=== PATIENT | female | born 1955 | race American Indian/Alaskan Native ===

== ENCOUNTER 2017-02-22 15:17 | Outpatient (CLI) | payer OTHER | END 2017-02-22 15:18 | disposition home or self-care (01) | LOC: LABHHL 15:17 | PROVIDERS: ATTEND Surgery | DX: N63 Unspecified lump in breast (principal) | CPT/HCPCS: 88305; 88361 ==

== ENCOUNTER 2017-03-01 08:42 | Outpatient (CLI) | payer OTHER ==
--- NOTE | 2017-03-01 14:01 | Ultrasound Report ---
ULTRASOUND GUIDED NEEDLE CORE BIOPSY WITH CLIP PLACEMENT OF A LEFT AXILLARY LYMPH NODE : 03/01/17 CLINICAL: Left breast cancer and a suspicious left axillary lymph node. COMPARISON :02/27/17 FINDINGS: The procedure was explained to the patient and informed consent was obtained. Ultrasound demonstrated the a 1 cm lymph node with no central fat and irregular contour. The skin in the axilla was prepped with Betadine and anesthetized with 1% lidocaine. Ultrasound guided needle core biopsy of the lymph node was performed through a small dermatotomy using 2% lidocaine with epinephrine for deep anesthesia and a 18-gauge Achieve biopsy device. 3 samples were obtained and placed in formalin. It was difficult to distinguish the margins of the lymph node from injected lidocaine and 2 clips were deployed. Hemostasis was obtained with minimal pressure and a sterile dressing was applied. The patient tolerated the procedure well and there were no apparent complications. A single view mammogram shows 2 clips in the left axilla in the vicinity of the lymph node. However, injected lidocaine obscures the margins of the lymph node and I'm not certain either of the clips is within the lymph node. She was discharged in good condition and was given wound care and followup instructions. IMPRESSION: Uncomplicated ultrasound-guided needle core biopsy of a left axillary lymph node.
--- NOTE | 2017-03-01 14:04 | Mammography Report ---
LEFT DIGITAL DIAGNOSTIC MAMMOGRAM : 03/01/17 08:42:00 CLINICAL: Status post biopsy of a left axillary lymph node. COMPARISON:02/27/17 FINDINGS: 2 clips are identified in the left axilla.There is considerable increase density from injected lidocaine. The more inferior clip appears to be at the margin of the lymph node but not within the lymph node. IMPRESSION: Deployment of 2 clips in the left axilla.However, neither of the clips appears to be within the lymph node. ACR BI-RADS MAMMOGRAPHIC CODES: 0 = Needs additional imaging evaluation; 1 = Negative; 2 = Benign; 3 = Probably benign; 4 = Suspicious; 5 = Malignant; 6 = Known biopsy-proven malignancy COMMENT: 1. Dense breast tissue, i.e., adenosis, fibrocystic changes, etc., may obscure an underlying neoplasm. 2. Approximately 10% of cancers are not detected with mammography. 3. A negative mammography report should not delay biopsy if a clinically suspicious mass is present. COMMENT: Patient follow-up letters are generated by our [employer] application.
--- NOTE | 2017-03-02 14:14 | Magnetic Resonance Report ---
BILATERAL BREAST MRI WITHOUT AND WITH CONTRAST: 03/01/17 08:42:00 CLINICAL: Newly diagnosed left breast cancer. Status post left needle biopsy on 02/21/17 with pathologic diagnosis of invasive ductal carcinoma, Amado grade 2/3. ER/PA positive and HER-2 positive. COMPARISON:October 2016 mammograms from [facility] and a left diagnostic mammogram 02/27/17. TECHNIQUE: Axial 1.0-mm T1 without, axial high resolution 2.0-mm T2 and axial 1.0-mm dynamic Vibrant high-resolution postcontrast T1 fat saturation sequences on a 1.5 Ethel magnet. The examination was performed with an 8 channel dedicated [place] breast coil. Post processing with CAD and subtraction was performed on an [employer] workstation. 20 cc of Multihance was injected without incident for the contrast portion of the exam. Consent was obtained prior to the administration of the contrast. FINDINGS: Right: Minimal background parenchymal enhancement. No mass or suspicious enhancement of the right breast. A benign intraparenchymal lymph node in the upper inner quadrant 6.7 cm from the nipple measures 3.4 x 3.3 x 2.6 mm. No suspicious right axillary or right internal mammary lymph nodes. Left: Marked background enhancement. The recently biopsied cancer is an irregular enhancing retroareolar mass at 12 o'clock 5.6 cm from the nipple measuring 4.8 x 5.4 x 5.6 cm. It demonstrates heterogeneous enhancement with 225% peak enhancement and 13% type III washout. Several additional highly suspicious masses in the left breast. The nipple is retracted and there is abnormal enhancement at the nipple. An irregular enhancing mass in the upper-inner quadrant 3.3 cm from the nipple measures 2.8 x 2.5 x 1.5 cm. It demonstrates heterogeneous enhancement with 175% peak enhancement and 21% type III washout. An irregular enhancing mass in the upper outer quadrant 3.9 cm from the nipple measures 2.6 x 1.8 x 1.8 cm. It demonstrates heterogeneous enhancement with 180% peak enhancement and 16% type III washout. Several additional highly suspicious smaller masses in the left breast. A single suspicious left level I axillary lymph node measures 1.3 x 0.9 cm but is suspicious with an irregular cortical margin. No suspicious left internal mammary lymph nodes. IMPRESSION: 1. Multicentric left breast cancer with a 5.6 cm dominant retroareolar mass and numerous additional highly suspicious masses. 2. A single suspicious left level I axillary lymph node. 3. Negative right breast. RIGHT BI-RADS 1 -- Negative LEFT BI-RADS 6 -- Known Cancer
== END 2017-03-01 08:43 | disposition home or self-care (01) ==
LOC: SPVIMAG 08:42
PROVIDERS: ATTEND Surgery
DX: C50.412 Malignant neoplasm of upper-outer quadrant of left female breast (principal)
CPT/HCPCS: 0159T; 38505; 76942; 88305; A4648; A9577; C8908; G0206; 77059

== ENCOUNTER 2017-03-23 10:05 | Outpatient (CLI) | payer OTHER ==
--- NOTE | 2017-03-23 13:45 | PET Report ---
PET/CT:03/23/17 10:05:00 CLINICAL: Breast cancer initial staging. Newly diagnosed multicentric left breast cancer. RADIOPHARMACEUTICAL: 15.1mCi F18-FDG. COMPARISON: MRI Breast Bilateral 03/01/17 TECHNIQUE- Following intravenous injection of F-18 FDG and an approximately 60 minute uptake period, CT and PET images from the mid skull to the upper thighs were acquired with the patient in the fasted state. No contrast was administered. The CT protocol used for this PET CT study is designed for attenuation correction and anatomic localization of PET abnormalities. This director television CT is not desired to produce and cannot replace, cncim-wh-nbw-art diagnostic CT scans with specific imaging protocols for different body parts and indications. Plasma glucose at the time of this test: 108g/dl. The standardized uptake values (SUV) are normalized to patient body weight and indicate the highest activity concentration (SUV max) in a given disease site. FINDINGS: Brain--Physiologic FDG uptake in the visualized regions of the brain. Neck--Physiologic FDG uptake . Chest--Physiologic FDG uptake in mediastinal blood pool and myocardium. Lungs--No abnormal uptake. No pulmonary nodule or mass. Pleura/pericardium--No abnormal uptake. Thoracic nodes--No abnormal uptake. 2 biopsy clips are identified in the left axilla adjacent to the biopsy proven 1 cm metastatic lymph node. Neither clip is within the lymph node. Minimal FDG uptake SUV 1.8. Hepatobiliary--No abnormal uptake. Liver background SUV mean, as a reference for comparing FDG studies, is 4.2 . Several benign hepatic cysts and no liver mass. The largest cyst is in the lateral segment of the left lobe and measures 3.3 x 2.8 cm. Spleen--No abnormal uptake. Pancreas--No abnormal uptake. Adrenal Glands--No abnormal uptake. Kidneys/Ureters/Bladder--No abnormal uptake. Abdominopelvic Nodes--No abnormal uptake. Bowel/Peritoneum/Mesentery--No abnormal uptake. Pelvic organs--No abnormal uptake. Bones/Soft Tissues--No suspicious uptake. Relatively uniform FDG uptake in the bone marrow consistent with benign marrow stimulation. No suspicious bone lesions. Other findings: Left breast masses with FDG uptake. The dominant mass demonstrates the greatest uptake with SUV 5.9. Skin thickening of the left breast. IMPRESSION- Multicentric left breast cancer with one biopsy proven left axillary metastatic lymph node. No suspicion of additional metastasis.
== END 2017-03-23 10:06 | disposition home or self-care (01) ==
LOC: PET 10:05
PROVIDERS: ATTEND Internal Medicine Hematology & Oncology
DX: C50.112 Malignant neoplasm of central portion of left female breast (principal); N63 Unspecified lump in breast; K76.89 Other specified diseases of liver
CPT/HCPCS: 78815; 82962; A9552

== ENCOUNTER 2017-07-04 13:03 | Outpatient (CLI) | payer OTHER ==
--- NOTE | 2017-07-04 14:06 | Mammography Report ---
Left mammogram: Compared to 03/01/17 and 02/27/17. CAD study utilized. Findings: Dense left breast parenchyma. Biopsy clips identified without interval change. Calcifications without significant interval change. No distinct mass is seen. Impression: Probably benign findings. 6 month followup may be recommended. BI-RADS CATEGORY: 3 = Probably benign ACR BI-RADS MAMMOGRAPHIC CODES: 0 = Needs additional imaging evaluation; 1 = Negative; 2 = Benign; 3 = Probably benign; 4 = Suspicious; 5 = Malignant; 6 = Known biopsy-proven malignancy COMMENT: 1. Dense breast tissue, i.e., adenosis, fibrocystic changes, etc., may obscure an underlying neoplasm. 2. Approximately 10% of cancers are not detected with mammography. 3. A negative mammography report should not delay biopsy if a clinically suspicious mass is present.
== END 2017-07-04 13:04 | disposition home or self-care (01) ==
LOC: SPVWC 13:03
PROVIDERS: ATTEND Surgery
DX: C50.412 Malignant neoplasm of upper-outer quadrant of left female breast (principal)
CPT/HCPCS: G0206-LT

== ENCOUNTER 2017-08-29 18:00 | Inpatient (IN) | payer OTHER ==
[~2017-08-29 18:00] MED LIST: LACTATED RINGERS 1,000 ML IV SCH; MORPHINE IV PRN; TYLENOL PO PRN; VANCOMYCIN PHARMACY TO DOSE IV SCH
[2017-08-29] MEDS ORDERED: VANCOMYCIN 1,750 MG in NACL 0.9% 500 ML 500 ML IV ONE (19:30)
[2017-08-29] MEDS: PERCOCET 5/325 PO PRN (21:16)
[2017-08-29 22:48] LABS: Anion Gap 17 mmol/L; BUN/Creatinine Ratio 12; Blood Urea Nitrogen 7 mg/dL (7-17); Calcium 8.7 mg/dL (8.4-10.2); Carbon Dioxide 24 mmol/L (22-30); Chloride 96.1 mmol/L (98-107); Glucose 109 mg/dL (65-100); Potassium 3.8 mmol/L (3.6-5.0); Sodium 133 mmol/L (137-145)
[2017-08-29] MEDS: ZOSYN/NS 2.25 GM/50ML 2.25 GM/50 ML BAG IV SCH (23:01)
[2017-08-29] MEDS: HEPARIN SUB-Q SCH (23:02)
[2017-08-30] MEDS: PERCOCET 5/325 PO PRN (03:35)
[2017-08-30] MEDS ORDERED: PEPCID PO NR ×2 (06:00)
[2017-08-30] MEDS ORDERED: NACL 0.9% 1000 ML 1,000 ML IV SCH (06:00)
[2017-08-30] MEDS: ZOSYN/NS 2.25 GM/50ML 2.25 GM/50 ML BAG IV SCH (06:30)
[2017-08-30] MEDS ORDERED: GARAMYCIN ONE (07:20)
[2017-08-30] MEDS ORDERED: BACITRACIN ONE ×2 (07:20→07:37)
[2017-08-30] MEDS ORDERED: ANCEF ONE (07:20)
[2017-08-30] MEDS: HEPARIN SUB-Q SCH ×3 (07:22→19:21)
[2017-08-30] MEDS ORDERED: XYLOCAINE 1% 20 mL ONE (07:23)
[2017-08-30] MEDS ORDERED: MARCAINE 0.5% 0 ML INFILTRATI ONE (07:23)
[2017-08-30] MEDS ORDERED: DIPRIVAN 10 MG/ML IV ONE (07:28)
[2017-08-30] MEDS ORDERED: DILAUDID ONE ×2 (07:29→08:22)
[2017-08-30] MEDS ORDERED: XYLOCAINE MPF 2% ONE (07:30)
--- NOTE | 2017-08-30 07:35 | Anesthesia Day of Surgery ---
Anesthesia Day of Surgery - Day of Surgery Patient Examined: Yes Patient is NPO: Yes
--- NOTE | 2017-08-30 07:35 | Anesthesia Consultation ---
Anesthesia Consult and Med Hx Date of service: 08/30/17 - Airway Anesthetic Teeth Evaluation: Good (implant, permanent) ROM Head & Neck: Adequate Mental/Hyoid Distance: Adequate Mallampati Class: Class II Intubation Access Assessment: Probably Good - Pulmonary Exam CTA: Yes - Cardiac Exam Cardiac Exam: RRR - Pre-Operative Health Status ASA Pre-Surgery Classification: ASA2 Proposed Anesthetic Plan: General - Pulmonary Hx Smoking: Yes (STOPPED X 15 YRS- 1/2 PPD X 2 YRS) Hx Asthma: No COPD: No Hx Pneumonia: No Hx Sleep Apnea: No (KASHIF PRE SCREEN LOW RISK) - Cardiovascular System Hx Hypertension: No - Endocrine Hx End Stage Renal Disease: No - Hematic Hx Anemia: Yes - Other Systems Hx Alcohol Use: Yes (occasional, glass of wine every day) Hx Cancer: Yes (Breast LEFT)
[2017-08-30] MEDS: VANCOMYCIN 1,250 MG in NACL 0.9% 250ML 250 ML IV SCH ×2 (07:49→19:33)
[2017-08-30] MEDS ORDERED: VERSED IV NR (08:00)
[2017-08-30] MEDS ORDERED: ZOFRAN IV PRN (08:00)
[2017-08-30] MEDS ORDERED: ZOFRAN ONE (08:10)
[2017-08-30] MEDS ORDERED: DECADRON ONE (08:10)
[2017-08-30] MEDS ORDERED: ANCEF IR ONE (08:15)
[2017-08-30] MEDS ORDERED: BACITRACIN IR ONE (08:15)
[2017-08-30] MEDS ORDERED: NACL 0.9% IR ONE ×2 (08:15)
[2017-08-30] MEDS ORDERED: GARAMYCIN IV ONE (08:15)
[2017-08-30] MEDS: DILAUDID IV PRN ×2 (09:00→09:10)
--- NOTE | 2017-08-30 09:04 | Post Operative Note ---
Pre-op diagnosis: infection left breast tissue pipe bowl paint trimmer Post-op diagnosis: same Findings: gross purulence of left breast pocket Procedure: removal of left breast tissue pipe bowl paint trimmer Anesthesia: GETA Surgeon: ADARSH CARRILLO Estimated blood loss: none Pathology: none Condition: stable Disposition: PACU
[2017-08-30] MEDS ORDERED: DILAUDID IV PRN (10:00)
--- NOTE | 2017-08-30 10:01 | Operative Report ---
PREOPERATIVE DIAGNOSIS: Infected left breast tissue webbing inspector. POSTOPERATIVE DIAGNOSIS: Infected left breast tissue webbing inspector. PROCEDURE: 1. Incision and drainage complex postoperative wound infection, left breast reconstruction, CPT CODE 56094. 2. Removal of left-sided tissue webbing inspector without insertion of prosthesis CPT CODE 41487. SURGEON: Jose Angel Ortega MD MICROBIOLOGY LAB ASSISTANT: None. ANESTHESIA: General. OPERATIVE INDICATIONS: This is a 61-year-old female, 3 weeks status post bilateral breast reconstruction with tissue expanders and FlexHD biologic mesh. She was doing well, but came in for her 3-week followup yesterday and upon removal of her drains, began having some purulent type drainage coming from the left breast, also was noted to have some cellulitis along the inframammary fold of the skin flaps. She also subjectively reported some low-grade fevers at home and just had not been feeling well with a lot of pain on the left side. It was apparent that there was a likely infection of that webbing inspector and unfortunately it would need to be removed. Arrangements were made to send the patient to the hospital and get her started on IV antibiotics, pain control and hydration and plan to take out the tissue webbing inspector as soon as possible. Risks and benefits were discussed with the patient as well as potential complications and she agreed. OPERATIVE DETAILS: After informed consent was obtained, the patient was brought to the operating room and placed supine on operating table. Preoperative antibiotics and general anesthesia were administered. The patient was prepped and draped in usual sterile fashion. A timeout was called verifying the name of the patient, operation being performed, side and site of the operation. We opened the old incision with a scalpel and removed any residual suture material. Upon opening, there was immediate release of at least 20-30 mL of purulent material around the webbing inspector. This was suctioned out. The webbing inspector was removed, appeared to be intact. The FlexHD had not incorporated likely because it was sitting in a pool of infection that was removed in its entirety as well. We then copiously irrigated the pocket after taking her cultures. Irrigation was performed with 3 liters of first of triple antibiotic irrigation and then diluted Betadine irrigation. Hemostasis was achieved and 19-K[place] Jesse drain was placed into the pocket and brought out and then we closed using 3-0 Monocryl deep dermals and 3-0 Monocryl running subcuticular. Sterile dressing was applied. Sponge and instrument count correct. The patient tolerated the procedure well, was awakened from general anesthesia and transferred to PACU in stable condition. FOLLOWUP PLAN: She will remain in the hospital for the next 24 hours at least until we know her infection is under control and she is afebrile. I will consult Infectious Disease to get the recommendations on antibiotic management and we will need to come up with a postoperative plan as to whether or not we can attempt to place another tissue webbing inspector or if we are going to have to commit her to a possible flap as she is going to need postoperative radiation. COMPLICATIONS: None. ESTIMATED BLOOD LOSS: Minimal. SPECIMENS: None. CULTURES: Anaerobic and aerobic cultures were taken of the left breast pocket and the webbing inspector and biologic mesh were sent for culture as well. FINDINGS: Infected left breast tissue webbing inspector. JOB# [id number] LATANYA/FAYE
[2017-08-30] MEDS: LACTATED RINGERS 1,000 ML IV SCH (10:17)
[2017-08-30] MEDS ORDERED: NACL 0.9% 500 ML 0 ML ONE (10:24)
[2017-08-30] MEDS ORDERED: LACTATED RINGERS 1,000 ML ONE (10:33)
[2017-08-30] MEDS: ROXICODONE PO PRN ×4 (10:50→22:51)
--- NOTE | 2017-08-30 11:01 | Post Anesthesia Evaluation ---
- Post Anesthesia Evaluation Patient Participated: Yes Airway Patent: Yes Stable Respiratory Function: Yes Nausea/Vomiting: No Temp > 96.8F: Yes Pain Manageable: Yes Adequeate Hydration: Yes Anesthesia Complications: No Block Receding Appropriately: Not Applicable Patient on Ventilator: No
[2017-08-30 11:25] LABS: Basophils % (Auto) 0.1 % (0.0-1.8); Eosinophils % (Auto) 0.1 % (0.0-4.3); Hematocrit 28.7 % (30.3-42.9); Hemoglobin 9.7 gm/dl (10.1-14.3); Mean Corpuscular HGB Conc 34 % (30-34); Mean Corpuscular Hemoglobin 32 pg (28-32); Mean Corpuscular Volume 96 fl (79-97); Platelet Count 311 K/mm3 (140-440); Red Blood Count 2.99 M/mm3 (3.65-5.03); Red Cell Distribution Width 15.8 % (13.2-15.2); White Blood Count 6.9 K/mm3 (4.5-11.0)
--- NOTE | 2017-08-30 11:26 | Consultation ---
History of Present Illness - Reason for Consult Consult date: 08/30/17 Breast outside sales inspector infection Requesting physician: ADARSH ORTEGA - History of Present Illness 61 year-old female with history of bilateral breast cancer s/p Right total mastectomy; left modified radical mastectomy on August 09, 2017 with outside sales inspector placement. Patient did well for a couple of week, unforntunately, a week ago she noted increasing pain, erythema and some drainage from surgical wound. She also has been reporting low grade fever for a week. She is currently getting chemo via a port-A-cath. Upon admission, her temperature was 100.1, heart rate 79, blood pressure 128/ 73. Patient was taken to the operating room was found to have purulence at the surgical pocket. M48 M60 Armor Crewman was removed. The cultures were sent. Microbiology: none Current Antimicrobials: Zosyn 08/29 Vancomycin 08/29 Past History Past Medical History: cancer Past Surgical History: Other (mastectomy) Medications and Allergies Allergies Allergy/AdvReac Type Severity Reaction Status Date / Time No Known Allergies Allergy Verified 08/02/17 14:34 Home Medications Medication Instructions Recorded Confirmed Last Taken Type No Known Home Medications [No 08/02/17 08/02/17 Unknown History Reported Home Medications] Active Meds: Active Medications Acetaminophen (Tylenol) 1,000 mg PO Q8H PRN PRN Reason: Pain, Mild (1-3) Heparin Sodium (Porcine) (Heparin) 5,000 unit SUB-Q Q8HR [facility] Last Admin: 08/30/17 10:52 Dose: 5,000 unit Vancomycin HCl 1,250 mg/ (Sodium Chloride) 262.5 mls @ 166.667 mls/hr IV Q12H [facility] Last Admin: 08/30/17 07:49 Dose: 166.667 mls/hr Piperacillin Sod/Tazobactam Sod (Zosyn/Ns 4.5gm/100ml) 4.5 gm in 100 mls @ 200 mls/hr IV Q8HR [facility] Oxycodone HCl (Roxicodone) 5 mg PO Q6H PRN PRN Reason: Pain, Moderate (4-6) Last Admin: 08/30/17 10:50 Dose: 5 mg Vancomycin HCl (Vancomycin Pharmacy To Dose) 1 each IV PKCONSULT KAREN PRN Reason: Protocol Review of Systems All systems: negative (surg wound erythema, tenderness and drainage) Physical Examination - Physical Exam Narrative exam: General appearance: Alert in NAD, conversant Eyes: anicteric sclerae, moist conjunctivae; no lid-lag; PERRLA HENT: Atraumatic; oropharynx clear with moist mucous membranes and no mucosal ulcerations/no oral thrush; normal hard and soft palate. Normal external ears. Neck: Trachea midline; supple, no thyromegaly or lymphadenopathy Lungs: CTA, right sided port no erythema CV: RRR, no murmurs Abdomen: Soft, non-tender; no masses or hepatosplenomegaly Extremities: No peripheral edema or extremity lymphadenopathy Skin: right mastectomy scar ok. left mastectomy with surgicla wound covered with dressings and a drain Psych: Appropriate affect, alert and oriented to person, place and time. Neuro: alert and oriented x 3. Moving all extermities Lines: No CVL / PICC - Constitutional Vitals: Vital Signs Temp Pulse Resp BP Pulse Ox 100.0 F H 84 20 113/65 97 08/30/17 08:50 08/30/17 09:15 08/30/17 09:15 08/30/17 09:15 08/30/17 09:15 Temperature -Last 24 Hours Temperature 100.0 F Temperature 101.2 F Temperature 100.7 F Temperature 99.2 F Temperature 100.1 F Temperature 98.5 F Results - Labs CBC & Chem 7: 08/30/17 10:48 08/29/17 22:08 Labs: Abnormal lab results 08/29/17 Range/Units 22:08 Sodium 133 L (137-145) mmol/L Chloride 96.1 L (98-107) mmol/L Creatinine 0.6 L (0.7-1.2) mg/dL Glucose 109 H (65-100) mg/dL Assessment and Plan Assessment: 1) Sepsis: Present on admission, manifested by low grade fever, tachycardia. Etiology most likely right breast wound infection. 2) Right breast mastectomy wound infection with outside sales inspector -S/P outside sales inspector removal, washout and debridement on 08/30 3) Breast cancer s/p bilateral mastectomy and ongoing chemo Plan: -obtain blood cultures and C-reactive protein (CRP) -follow-up OR deep wound cultures -continue vancomycin and zosyn -upon discharge will consider oral antibiotics depending on isolate Thank you Dr Ortega for your consultation, will follow up with you. Lida Hope MD Infectious Diseases Specialist [facility] ([facility] M [phone] O [phone]
[2017-08-30 11:46] LABS: Erythrocyte Sedimentation Rate 52 mm/Hr (0-20)
[2017-08-30] MEDS: ZOSYN/NS 4.5GM/100ML 4.5 GM/100 ML VIAL IV SCH ×2 (14:57→23:23)
[2017-08-30] MEDS ORDERED: D5LR 1,000 ML IV SCH (19:00)
[2017-08-31] MEDS: HEPARIN SUB-Q SCH ×2 (03:08→11:40)
[2017-08-31] MEDS: LACTATED RINGERS 1,000 ML IV SCH (03:33)
[2017-08-31] MEDS: ROXICODONE PO PRN ×2 (05:01→11:04)
--- NOTE | 2017-08-31 06:46 | Progress Note ---
Assessment and Plan POD 1 s/p removal of infected tissue construction rigger -Will follow up with ID recs. Would like to discharge her today with PO empiric antibiotics and then can perhaps tailor her antibiotics once final results come back in a few days. -will want home health set up to help with drain care and monitoring of the wound. -Percocet for pain Subjective Date of service: 08/31/17 Principal diagnosis: infected left breast construction rigger Interval history: construction rigger removed, ID consult obtained. Reports feeling much better, no more fevers. Tolerating diet. Objective - Exam Narrative Exam: BREASTS: left breast much improved. Erythema resolved. Drainage from drain is serous. No hematoma or seroma. Right breast also looks better. No erythema. No drainage from old drain site. - Constitutional Vitals: Vital Signs - 12hr 08/30/17 08/30/17 08/31/17 20:00 22:51 00:40 Temperature 98.4 F 98.4 F Pulse Rate 75 78 Respiratory 18 18 18 Rate Blood Pressure 110/64 105/66 [Right] 08/31/17 05:01 Temperature Pulse Rate Respiratory 18 Rate Blood Pressure [Right] General appearance: Present: no acute distress - Breasts Breasts: other - Labs CBC & Chem 7: 08/30/17 10:48 08/29/17 22:08 Labs: Abnormal lab results 08/30/17 08/30/17 Range/Units 10:48 10:48 RBC 2.99 L (3.65-5.03) M/mm3 Hgb 9.7 L (10.1-14.3) gm/dl Hct 28.7 L (30.3-42.9) % RDW 15.8 H (13.2-15.2) % Lymph % (Auto) 6.5 L (13.4-35.0) % Lymph # 0.4 L (1.2-5.4) K/mm3 Seg Neutrophils % 87.7 H (40.0-70.0) % C-Reactive Protein 9.80 H (0.00-1.30) mg/dL
[2017-08-31] MEDS: VANCOMYCIN 1,250 MG in NACL 0.9% 250ML 250 ML IV SCH (08:21)
[2017-08-31] MEDS: ZOSYN/NS 4.5GM/100ML 4.5 GM/100 ML VIAL IV SCH (08:22)
--- NOTE | 2017-08-31 09:25 | Hem/Onc Progress Note ---
Assessment and Plan poss d/c today cbc stable will follow as op Subjective Date of service: 08/31/17 Interval history: pt known to me. s/p chemo now with L sided chest wall infection. consulting property manager removed. feels better Objective - Exam Narrative Exam: better - Constitutional Vitals: Last Vital Signs Temp 98.4 F 08/31/17 04:45 Pulse 71 08/31/17 04:45 Resp 18 08/31/17 05:01 BP 109/62 08/31/17 04:45 Pulse Ox 99 08/30/17 16:41 General appearance: no acute distress Performance status: 3-limited selfcare - Neck Neck: supple - Respiratory Respiratory effort: Positive: normal - Breasts Breasts: left: other (L chest wall bandadged) - Labs Lab Results: Laboratory Results - last 24 hr 08/30/17 08/30/17 10:48 10:48 WBC 6.9 RBC 2.99 L Hgb 9.7 L Hct 28.7 L MCV 96 MCH 32 MCHC 34 RDW 15.8 H Plt Count 311 Lymph % (Auto) 6.[address] [place] % (Auto) 5.6 Eos % (Auto) 0.1 Baso % (Auto) 0.1 Lymph # 0.[address] [place] # 0.4 Eos # 0.0 Baso # 0.0 Seg Neutrophils % 87.7 H Seg Neutrophils # 6.0 ESR 52 C-Reactive Protein 9.80 H
--- NOTE | 2017-08-31 10:30 | Discharge Summary ---
Providers - Providers Date of Admission: 08/29/17 18:11 Date of discharge: 08/31/17 Attending physician: ADARSH CARRILLO infectious disease Primary care physician: JOSH COBIAN Hospitalization Reason for admission: infected left tissue auto body worker Condition: Good Procedures: removal of infected tissue auto body worker left and washout Disposition: DC-01 TO HOME OR SELFCARE Core Measure Documentation - Palliative Care Palliative Care/ Comfort Measures: Not Applicable - Core Measures Any of the following diagnoses?: none Exam - Physical Exam Narrative exam: Doing well. Cellulitis and drainage resolved. Drain serous. Afebrile - Constitutional Vitals: Temp Pulse Resp BP Pulse Ox 98.3 F 68 17 112/67 95 08/31/17 08:10 08/31/17 08:10 08/31/17 08:10 08/31/17 08:10 08/31/17 08:10 Plan Activity: other (no heavy lifting) Weight Bearing Status: Weight Bear as Tolerated Diet: regular Wound: keep clean and dry Special Instructions: home health RN Follow up with: JOSH COBIAN MD [Primary Care Provider] - 7 Days ADARSH CARRILLO MD [Staff Physician] - 7 Days
[2017-08-31] MEDS ORDERED: MOTRIN PO PRN (10:52)
[2017-08-31] MEDS ORDERED: COLACE PO SCH (11:00)
--- NOTE | 2017-08-31 11:32 | Progress Note ---
Assessment and Plan Assessment: 1) Sepsis: resolved. Etiology most likely right breast wound infection. 2) Right breast mastectomy wound infection with jig filler -S/P jig filler removal, washout and debridement on 08/30 +OR tissue cx + MRSA 3) Breast cancer s/p bilateral mastectomy and ongoing chemo Plan: -contact isolation -upo discharge will do doxycycline 100 mg po q12h total 10 days from OR date -f/u MRSE MICs to assure it is susceptible to tetracyclines -call ID if MAXINE is resistant -OK to D/C home -educated about doxycycline side effects -surgical f/u in 3-5 days I am signing off Thank you Dr Ortega for your consultation, will follow up with you. Lida Hope MD Infectious Diseases Specialist [facility] ([facility]) M [phone] O [phone] Subjective Date of service: 08/31/17 Principal diagnosis: infected left breast jig filler Interval history: Feels better, more energy, no fever. eating ok. Microbiology: Wound 08/30 left breast surgical wound + MRSA Blood cx 08/30 ngtd Current Antimicrobials: Zosyn 08/29 Vancomycin 08/29 Objective - Exam Narrative Exam: General appearance: Alert in NAD, conversant Eyes: anicteric sclerae, moist conjunctivae; no lid-lag; PERRLA HENT: Atraumatic; oropharynx clear with moist mucous membranes and no mucosal ulcerations/no oral thrush; normal hard and soft palate. Normal external ears. Neck: Trachea midline; supple, no thyromegaly or lymphadenopathy Lungs: CTA, right sided port no erythema CV: RRR, no murmurs Abdomen: Soft, non-tender; no masses or hepatosplenomegaly Extremities: No peripheral edema or extremity lymphadenopathy Skin: right mastectomy scar ok. left mastectomy with surgicla wound covered with dressings and a drain Psych: Appropriate affect, alert and oriented to person, place and time. Neuro: alert and oriented x 3. Moving all extermities Lines: No CVL / PICC - Constitutional Vitals: Vital Signs Temp Pulse Resp BP Pulse Ox 98.3 F 68 17 112/67 95 08/31/17 08:10 08/31/17 08:10 08/31/17 08:10 08/31/17 08:10 08/31/17 08:10 Temperature -Last 24 Hours Temperature 98.3 F Temperature 98.4 F Temperature 98.4 F Temperature 98.4 F Temperature 97.7 F Temperature 98.2 F - Labs CBC & Chem 7: 08/30/17 10:48 08/29/17 22:08 Labs: Abnormal lab results 08/30/17 Range/Units 10:48 C-Reactive Protein 9.80 H (0.00-1.30) mg/dL
[2017-08-31 15:50] VITALS: BP 112/73
== END 2017-08-31 15:45 | disposition home health service (06) | DRG 907 ==
LOC: OR 18:00 → OB 18:11
PROVIDERS: ADMIT Plastic Surgery; ATTEND Plastic Surgery
PROC: 0HPU0NZ Removal of Tissue Expander from Left Breast, Open Approach (ICD-10-PCS; principal; 2017-08-30)
PROC: 0H9U0ZZ Drainage of Left Breast, Open Approach (ICD-10-PCS; 2017-08-30)
DX: T85.79XA Infection and inflammatory reaction due to other internal prosthetic devices, implants and grafts, initial encounter (principal); A41.9 Sepsis, unspecified organism; Z87.891 Personal history of nicotine dependence; Z85.3 Personal history of malignant neoplasm of breast; Y83.8 Other surgical procedures as the cause of abnormal reaction of the patient, or of later complication, without mention of misadventure at the time of the procedure; Y92.89 Other specified places as the place of occurrence of the external cause; Z90.13 Acquired absence of bilateral breasts and nipples
CPT/HCPCS: 36415; 80048; 85025; 85652; 86140; 86403; 87040; 87075; 87116; 87186; 88300; 88302; 88305; A4217; J0690; J1100; J1170; J1580; J1644; J2250; J2270; J2405; J2543; J2704; J3370; J7030; J7040; J7050; J7120

== ENCOUNTER 2019-09-11 08:56 | Outpatient (CLI) | payer OTHER | END 2019-09-11 08:57 | disposition home or self-care (01) | LOC: LABHHL 08:56 | PROVIDERS: ATTEND Surgery | DX: R22.2 Localized swelling, mass and lump, trunk (principal); E78.00 Pure hypercholesterolemia, unspecified; Z87.891 Personal history of nicotine dependence; Z86.2 Personal history of diseases of the blood and blood-forming organs and certain disorders involving the immune mechanism | CPT/HCPCS: 88305; 88307; 88341; 88342; 88368 ==

== ENCOUNTER 2019-09-19 08:29 | Outpatient (CLI) | payer OTHER ==
--- NOTE | 2019-09-19 09:51 | Ultrasound Report ---
RIGHT BREAST ULTRASOUND HISTORY: Status post bilateral mastectomy for multicentric left breast cancer and prophylaxis of the right breast. Newly diagnosed breast cancer of the right chest wall. She had an ultrasound-guided nee dle biopsy a palpable right chest wall mass on 09/10/2019 which revealed invasive carcinoma. COMPARISON: None. FINDINGS: Sonographic evaluation focused upon the 12:00 location of the right chest wall demonstrates an oval irregular solid hypoechoic mass measuring 8 x 6 x 7 mm. A hydromark clip is identified asher cent to the mass. This corresponds to a palpable lump felt by the patient. Ultrasound of the right ax illa demonstrated an abnormal suspicious lymph node measuring 1.9 x 1.4 x 2.3 cm. The cortex measures 8 mm and there is minimal central fat. IMPRESSION: A newly diagnosed 8 mm right breast cancer of the right chest wall at 12:00 and a suspici ous right axillary lymph node. Recommend ultrasound-guided needle biopsy of the lymph node. BIRADS 6: Known biopsy proven malignancy. Signer Name: Tim Mccrary MD Signed: 09/19/2019 9:47 AM Workstation Name: [id number]
== END 2019-09-19 08:30 | disposition home or self-care (01) ==
LOC: SPVWC 08:29
PROVIDERS: ATTEND Surgery
DX: C50.811 Malignant neoplasm of overlapping sites of right female breast (principal); C50.211 Malignant neoplasm of upper-inner quadrant of right female breast; Z85.3 Personal history of malignant neoplasm of breast; Z90.13 Acquired absence of bilateral breasts and nipples

== ENCOUNTER 2019-09-27 16:13 | Outpatient (CLI) | payer OTHER | END 2019-09-27 16:14 | disposition home or self-care (01) | LOC: LABHHL 16:13 | PROVIDERS: ATTEND Surgery | DX: D36.0 Benign neoplasm of lymph nodes (principal) | CPT/HCPCS: 88305; 88341; 88342; 88368 ==

== ENCOUNTER 2019-10-07 11:44 | Day surgery (SDC) | payer OTHER ==
--- NOTE | 2019-10-04 10:11 | Short Stay Summary ---
Short Stay Documentation Date of service: 10/07/19 - History H&P: obtained from office - Allergies and Medications Current Medications: Allergies No Known Allergies Allergy (Verified 08/02/17 14:34) Home Medications Medication Instructions Recorded Confirmed Last Taken Type No Known Home Medications [No 08/02/17 08/30/17 Unknown History Reported Home Medications] - Physical exam General appearance: no acute distress HEENT: Atraumatic Lungs: Normal air movement Neurological: Normal speech - Brief post op/procedure progress note Date of procedure: 10/07/19 (dictation:[id number]) Pre-op diagnosis: recurrent breast cancer Post-op diagnosis: same Procedure: US guided port placement IVF 750cc EBL min Anesthesia: GETA Findings: normal anatomy Surgeon: THERON HANDY Estimated blood loss: minimal Pathology: none Condition: stable - Hospital course Hospital course: uneventful - Disposition Condition at discharge: Stable Disposition: DC-01 TO HOME OR SELFCARE Short Stay Discharge Plan Diet: regular Wound: open to air, keep clean and dry Special Instructions: no heavy lifting Additional Instructions: Post Operative Instructions Activity: no heavy lifting for next 1 week. May shower tomorrow. Pat dry the wound or wounds. Keep incision sites clean and dry After surgery, start with a light diet. Consider having a liquid diet first. If you do well, you can advance to a regular diet as you feel comfortable. Apply an ice pack to the wound or wounds for 10-20 minutes at a time. Do this at least 4-5 times a day. You can do it more if he would like. Alternate the use of ibuprofen and Tylenol for the first 2 days. I want you to take these on a scheduled basis. Take 600 mg of ibuprofen every 6 hours. Take 500 mg of Tylenol every 6 hours. You should alternate these 2 medicines. In other words, beginning with the ibuprofen. After 3 hours, take the Tylenol. Keep alternating the 2 drugs every 3 hours. Do this on a scheduled basis for the first 2 days. After that, you can take them as needed. It is very important that you use the prescription pain medicine only for very severe pain. Do not take the prescription medicine before you try using the ibuprofen and Tylenol. We will call you in a couple of days to see how youre doing. If you have any questions or concerns, always feel free to call the clinic at any time. Follow up with: GALEN FERNANDEZ MD [Primary Care Provider] - 7 Days Forms: Outpatient Surgery DC Inst. Prescriptions: HYDROcodone/APAP 5-325 [[place] 5-325 mg TAB] 1 each PO Q6HR PRN #5 tablet PRN Reason: Pain , Severe (7-10)
[~2019-10-07 11:44] MED LIST changes: +ACETAMINOPHEN 500 MG TAB PO NR; +CELECOXIB 200 MG CAP PO NR; +GABAPENTIN 300 MG CAP PO NR; -LACTATED RINGERS 1,000 ML IV SCH; -MORPHINE IV PRN; +SODIUM CHLORIDE 0.9% 1000 ML 1,000 ML IV SCH; -TYLENOL PO PRN; -VANCOMYCIN PHARMACY TO DOSE IV SCH; +ceFAZolin/Water 2 GM/20 ML 2 GM/20 ML SYRINGE IV NR
--- NOTE | 2019-10-07 13:31 | Anesthesia Consultation ---
Anesthesia Consult and Med Hx Date of service: 10/07/19 - Airway Anesthetic Teeth Evaluation: Good ROM Head & Neck: Adequate Mental/Hyoid Distance: Adequate Mallampati Class: Class I Intubation Access Assessment: Good - Pulmonary Exam CTA: Yes - Cardiac Exam Cardiac Exam: RRR - Pre-Operative Health Status ASA Pre-Surgery Classification: ASA3 Proposed Anesthetic Plan: General, MAC - Pulmonary Hx Smoking: Yes ( 1/2 PPD X 2 YRS; QUIT 1999) Hx Sleep Apnea: No (KASHIF PRE SCREEN LOW RISK) - Cardiovascular System Hx Hypertension: Yes (2013) - Central Nervous System Hx Psychiatric Problems: Yes - Endocrine Hx End Stage Renal Disease: No - Hematic Hx Anemia: Yes - Other Systems Hx Alcohol Use: Yes (OCCA WINE) Hx Substance Use: No Hx Cancer: Yes
--- NOTE | 2019-10-07 13:32 | Anesthesia Day of Surgery ---
Anesthesia Day of Surgery - Day of Surgery Patient Examined: Yes Patient H&P Reviewed: Yes Patient is NPO: Yes
[2019-10-07] MEDS ORDERED: LIDOCAINE (1%) 10 MG/1 ML VIAL 20 ML MDV ONE (13:48)
[2019-10-07] MEDS ORDERED: BUPIVACAINE-EPINEPHRINE/PF 0.5%-1:200,000 (30 ML) VIAL INFILTRATI ONE ×2 (13:48→14:23)
[2019-10-07] MEDS ORDERED: SODIUM CHLORIDE 0.9% 250ML 250 ML ONE (13:48)
[2019-10-07] MEDS ORDERED: SODIUM CHLORIDE P/F VIAL 10 ML 10 ML ONE ×2 (13:48→13:49)
[2019-10-07] MEDS ORDERED: HEPARIN 10,000 UNITS/10 ML VIAL ONE ×2 (13:48→13:49)
[2019-10-07] MEDS ORDERED: LIDOCAINE MPF (2%) 20 MG/1 ML VIAL 5 ML ONE (13:56)
[2019-10-07] MEDS ORDERED: fentaNYL 100 MCG/2 ML INJ ONE (13:56)
[2019-10-07] MEDS ORDERED: PROPOFOL 200 MG/20 ML VIAL IV ONE (13:57)
[2019-10-07] MEDS ORDERED: MIDAZOLAM 2 MG/2 ML INJ IV NR (14:00)
[2019-10-07] MEDS ORDERED: LACTATED RINGERS 1,000 ML IV SCH (14:00)
[2019-10-07] MEDS ORDERED: ONDANSETRON 4 MG/2 ML INJ ONE (14:17)
[2019-10-07] MEDS ORDERED: dexAMETHasone 20 MG/5 ML VIAL ONE (14:17)
[2019-10-07] MEDS ORDERED: HEPARIN 10,000 UNITS/10 ML VIAL IV ONE (14:20)
[2019-10-07] MEDS ORDERED: LIDOCAINE (1%) 10 MG/1 ML VIAL 20 ML MDV INFILTRATI ONE (14:23)
[2019-10-07] MEDS ORDERED: HEPARIN 1,000 UNIT/1 ML VIAL IV ONE (14:30)
[2019-10-07] MEDS ORDERED: SODIUM CHLORIDE 0.9% 250 ML IVPB IV ONE (14:30)
[2019-10-07] MEDS ORDERED: ePHEDrine SULFATE 50 MG/1 ML INJ ONE (14:47)
--- NOTE | 2019-10-07 15:33 | Fluoroscopy Report ---
CHEST 1 VIEW INDICATION / CLINICAL INFORMATION: RECURRENT BREAST CANCER. COMPARISON: None available. FINDINGS: SUPPORT DEVICES: Port-A-Cath catheter enters from a right internal jugular approach. The catheter tip projects the level the junction of the superior vena cava and right atrium HEART / MEDIASTINUM: No significant abnormality. LUNGS / PLEURA: There is patchy airspace opacity in the left midlung zone. No pneumothorax. There is mild apical pleural thickening on the left ADDITIONAL FINDINGS: There are surgical clips noted in the left axilla IMPRESSION: 1. There is patchy airspace opacity in the left midlung zone. There is mild apical pleural thickening on the left. Signer Name: Channing Isabel MD Signed: 10/07/2019 3:28 PM Workstation Name: [id number]
[2019-10-07 15:38] VITALS: BP 136/82
--- NOTE | 2019-10-07 19:30 | Operative Report ---
PREOPERATIVE DIAGNOSIS: Recurrent breast cancer. POSTOPERATIVE DIAGNOSIS: Recurrent breast cancer. PROCEDURES: 1. Insertion of tunneled centrally inserted central venous access device with subcutaneous port. 2. Ultrasound guidance for vascular access. ATTENDING PHYSICIAN: Pattie Pacheco MD ANESTHESIA: General. ESTIMATED BLOOD LOSS: Minimal. FLUIDS: 750 mL. FINDINGS: Normal vascular anatomy. IMPLANTS: Smart port. COMPLICATIONS: None. DISPOSITION: Stable, transferred to Recovery Room. INDICATIONS: This is a 64-year-old female who presents for replacement of her port that she just had removed 2 months ago. The patient experienced recurrence of breast cancer, felt to be in need for another round of chemotherapy. Procedure, risks, benefits were explained to the patient. Risks included but were not limited to infection, bleeding, pain, injury to surrounding structures, possible need for further procedures in the future. The patient understood and consented. OPERATIVE NOTE: The patient was brought to the operating room and placed on the table in supine position. After adequate general anesthesia was established, the patient was prepped and draped in usual sterile fashion. SCDs were in place. Antibiotics had been given. Time-out was called. A roll was placed underneath the shoulders. The patient was placed in Trendelenburg position. After time-out was called, ultrasound examination was done of the right internal jugular vein. Plan was to place the port on the right side. The patient had easily compressible vein. There were no clots and no areas of stenosis. Local was then used to anesthetize the skin. A small incision was made under ultrasound guidance. Introducer needle was inserted under ultrasound guidance into the vein. I had good aspiration of blood. Guidewire was passed. Position was checked with fluoroscopy. Guidewire was secured. We then anesthetized the old port pocket. I used her old incision. I opened that up sharply. Pocket was recreated with mainly electrocautery and some blunt dissection. Additional local was injected. We made sure the port fit easily and it did. I then injected the planned tunneling site and then passed the tunneler up to the neck. Dilator and sheath were passed over the wire. It was easily inserted with the guidewire moving freely at various points when we checked. We then removed the dilator and guidewire. Pressure was held over the sheath. Catheter was inserted. We checked the position with fluoroscopy and then trimmed the distal end to the appropriate length. Please note that the catheter had been clamped in various locations so that there was no air infiltration at any point. The port was attached, collar was secured over the catheter and port and the port was placed in the pocket. It laid very nicely. We checked the final positioning. It appeared as though the tip of the catheter was just beyond 2 vertebral bodies from the nora, felt to be in adequate position. We had easy aspiration and flushed with the dilute heparin. The patient was then placed in reverse Trendelenburg position. I injected the locking solution after aspirating to make sure there was no air. Additional local was injected throughout the right side around the port and along the catheter site and neck access site. A 3-0 Vicryl was used to close the deep tissue at the pocket site with interrupted 4-0 Monocryl was used to close the skin with a running subcuticular stitch. Skin was cleaned and dried. Dermabond was placed. The patient tolerated the procedure well. There were no complications. All counts were correct at the end of the case. JOB# [id number] DESI/FAYE PEREZ
== END 2019-10-07 16:29 | disposition home or self-care (01) ==
LOC: OR 11:44
PROVIDERS: ATTEND Surgery
DX: C50.919 Malignant neoplasm of unspecified site of unspecified female breast (principal); G62.9 Polyneuropathy, unspecified; E78.00 Pure hypercholesterolemia, unspecified; I10 Essential (primary) hypertension; F32.9 Major depressive disorder, single episode, unspecified; F41.9 Anxiety disorder, unspecified; Z72.89 Other problems related to lifestyle; Z79.899 Other long term (current) drug therapy; Z87.891 Personal history of nicotine dependence; Z98.890 Other specified postprocedural states; Z80.3 Family history of malignant neoplasm of breast; Z90.13 Acquired absence of bilateral breasts and nipples; Z86.2 Personal history of diseases of the blood and blood-forming organs and certain disorders involving the immune mechanism
CPT/HCPCS: 36561; 77001; C1788; J0690; J1100; J1644; J2250; J2405; J2704; J3010; J7030; J7050

== ENCOUNTER 2021-11-30 09:26 | Outpatient (CLI) | payer OTHER ==
--- NOTE | 2021-11-30 17:28 | Ultrasound Report ---
EXAMINATION: Left Limited Breast Ultrasound, 11/30/2021 INDICATION: The patient has a personal history of right breast cancer treated with bilateral mastectomy. She repo rts a new lump in the left axilla. COMPARISON: No relevant prior study is available for comparison. FINDINGS: Targeted ultrasound evaluation was performed of the area of interest. Sonographic evaluati on of the left axilla in the patient's area of palpable concern demonstrates a hypoechoic irregular s olid mass which is taller than wide measuring 1.0 x 0.8 cm. There is no associated vascularity. IMPRESSION: 1. Irregular hypoechoic mass in the left axilla which is highly suspicious for malignancy. Ultrasound -guided biopsy is recommended. Follow up recommendation: Biopsy BI-RADS Category 5: HIGHLY SUGGESTIVE OF MALIGNANCY. A normal or "negative" report should not preclude biopsy or follow-up of a clinically suspicious find ing. Signer Name: Becky Mera MD Signed: 11/30/2021 5:23 PM Workstation Name: [id number]
== END 2021-11-30 09:27 | disposition home or self-care (01) ==
LOC: SPVWC 09:26
PROVIDERS: ATTEND Surgery
DX: N63.23 Unspecified lump in the left breast, lower outer quadrant (principal); Z85.3 Personal history of malignant neoplasm of breast